=== PATIENT | female | born 1975 | race Caucasian/White ===

== ENCOUNTER 2018-06-21 14:15 | Inpatient (IN) | payer OTHER ==
[~2018-06-21] VITALS: Ht 152.4 cm; Wt 97.5 kg
[~2018-06-21 14:15] MED LIST: SYNTH PO
[2018-06-25] MEDS ORDERED: SYNTHROID175 MCG PO (14:44)
[2018-06-27] MEDS ORDERED: POLY119PG PO (06:56)
[2018-06-27] MEDS ORDERED: GABAPENTIN600 MG PO (06:56)
[2018-06-27] MEDS ORDERED: GAS RELIEF125 MG PO (06:56)
[2018-06-27] MEDS ORDERED: IBUPROFEN800 MG PO (06:56)
== END 2018-06-27 09:16 | disposition home or self-care (01) | DRG 743 ==
LOC: OB/GYN 06-25 05:05 → O/R 06-25 05:05 → SURH 06-25 07:00 → OB/GYN 06-25 10:28 → SURH 06-25 14:15 → OB/GYN 06-27 09:16
PROVIDERS: ADMIT Obstetrics & Gynecology
PROC: 0UT70ZZ Resection of Bilateral Fallopian Tubes, Open Approach (ICD-10-PCS; 2018-06-25)
PROC: 0UT90ZZ Resection of Uterus, Open Approach (ICD-10-PCS; principal; 2018-06-25 07:00)
DX: N84.0 Polyp of corpus uteri (principal); N73.6 Female pelvic peritoneal adhesions (postinfective); E03.8 Other specified hypothyroidism